=== PATIENT | female | born 1940 | race African-American/Black ===

== ENCOUNTER 2018-05-09 07:39 | Day surgery (SDC) | payer OTHER, MEDICARE ==
[2018-05-09 07:17] VITALS: BMI 35.3
[2018-05-09 09:56] VITALS: BP 108/90; PULSE 61; TEMP 99
--- NOTE | 2018-05-10 17:05 | PATH ---
Surgical Pathology Report Patient Name: LEO GILLILAND [facility]. Rec. #: [id number] /Age/Gender: 1940 (Age: 77) / F Account: [id number] Location: [facility]-ENDOSCOPY Taken: 05/09/2018 Received: 05/09/2018 Reported: 05/10/2018 Physicians: Triston Trevino M.D. Specimen(s) Received A: CECUM B: RIGHT COLON C: TRANSVERSE COLON D: DESCENDING COLON E: SIGMOID F: RECTUM Clinical History History of ulcerative colitis, adenoma, change in bowel habits Postop diagnosis: Quiescent ulcerative colitis, rule out dysplasia Final Diagnosis A. CECUM BIOPSY: COLONIC MUCOSA WITH MILD CRYPT ARCHITECTURAL DISTORTION AND REACTIVE LYMPHOID AGGREGATE IN THE LAMINA PROPRIA. SEE COMMENT. B. RIGHT COLON, BIOPSY: COLONIC MUCOSA WITH REACTIVE LYMPHOID AGGREGATE IN THE LAMINA PROPRIA. SEE COMMENT. C. TRANSVERSE COLON, BIOPSY: COLONIC MUCOSA WITH MILD CRYPT ARCHITECTURAL DISTORTION, AND REACTIVE LYMPHOID AGGREGATES IN THE LAMINA PROPRIA. SEE COMMENT. D. DESCENDING COLON, BIOPSY: COLONIC MUCOSA WITH MILD CRYPT ARCHITECTURAL DISTORTION, AND REACTIVE LYMPHOID AGGREGATES IN THE LAMINA PROPRIA. SEE COMMENT. E. SIGMOID BIOPSY: COLONIC MUCOSA WITH MILD CRYPT ARCHITECTURAL DISTORTION, AND REACTIVE LYMPHOID AGGREGATES IN THE LAMINA PROPRIA. SEE COMMENT. F. RECTUM, BIOPSY: COLONIC MUCOSA WITH REACTIVE LYMPHOID AGGREGATE IN THE LAMINA PROPRIA. SEE COMMENT. Comment: There is no dysplasia, granuloma, parasite or viral inclusions. 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 Suggest correlate clinically. Electronically Signed Abby Giron M.D. Gross Description A. Received in formalin, labeled "biopsy cecum" are 4 moore, irregular portions of soft tissue ranging from 0.2-0.5 cm. in greatest dimension. The specimens are submitted in toto in one cassette. B. Received in formalin, labeled "biopsy right colon" are 3 moore, irregular portions of soft tissue ranging from 0.3-0.4 cm. in greatest dimension. The specimens are submitted in toto in one cassette. C. Received in formalin, labeled "biopsy transverse colon" are 3 moore, irregular portions of soft tissue ranging from 0.3-0.4 cm. in greatest dimension. The specimens are submitted in toto in one cassette. D. Received in formalin, labeled "biopsy descending colon" are 2 moore, irregular portions of soft tissue measuring 0.3 and 0.4 cm. in greatest dimension. The specimens are submitted in toto in one cassette. E. Received in formalin, labeled "biopsy sigmoid colon" are 3 moore, irregular portions of soft tissue ranging from 0.3-0.6 cm. in greatest dimension. The specimens are submitted in toto in one cassette. F. Received in formalin, labeled "biopsy rectum" are 4 moore, irregular portions of soft tissue ranging from 0.3-0.8 cm. in greatest dimension. The specimens are submitted in toto in one cassette. 05/09/2018 saudi05/09/2018
== END 2018-05-09 10:04 | disposition home or self-care (01) ==
LOC: JASU-ENDO 07:39
PROVIDERS: ATTEND Internal Medicine Gastroenterology
PROC: 0DBE8ZX Excision of Large Intestine, Via Natural or Artificial Opening Endoscopic, Diagnostic (ICD-10-PCS; principal; 2018-05-09 08:00)
DX: Z12.11 Encounter for screening for malignant neoplasm of colon (principal); K57.30 Diverticulosis of large intestine without perforation or abscess without bleeding; K51.90 Ulcerative colitis, unspecified, without complications
CPT/HCPCS: 88305-TC

== ENCOUNTER 2020-12-23 05:03 | Day surgery (SDC) | payer OTHER, MEDICARE ==
[2020-12-20 14:41] VITALS: BMI 38.0
[2020-12-23 11:17] VITALS: BP 123/70; PULSE 58; TEMP 97.8
== END 2020-12-23 11:30 | disposition home or self-care (01) ==
LOC: JASU-ENDO 05:03
PROVIDERS: ATTEND Internal Medicine Gastroenterology
PROC: 0DBL8ZX Excision of Transverse Colon, Via Natural or Artificial Opening Endoscopic, Diagnostic (ICD-10-PCS; 2020-12-23)
PROC: 0DBN8ZX Excision of Sigmoid Colon, Via Natural or Artificial Opening Endoscopic, Diagnostic (ICD-10-PCS; 2020-12-23)
PROC: 0DBP8ZX Excision of Rectum, Via Natural or Artificial Opening Endoscopic, Diagnostic (ICD-10-PCS; 2020-12-23)
PROC: 0DBH8ZX Excision of Cecum, Via Natural or Artificial Opening Endoscopic, Diagnostic (ICD-10-PCS; 2020-12-23)
PROC: 0DBK8ZX Excision of Ascending Colon, Via Natural or Artificial Opening Endoscopic, Diagnostic (ICD-10-PCS; principal; 2020-12-23 09:00)
DX: Z12.11 Encounter for screening for malignant neoplasm of colon (principal); K51.90 Ulcerative colitis, unspecified, without complications; K64.8 Other hemorrhoids; K57.30 Diverticulosis of large intestine without perforation or abscess without bleeding
CPT/HCPCS: 88305-TC